=== PATIENT | female | born 1960 | race African-American/Black ===

== ENCOUNTER 2017-09-21 16:30 | Inpatient (IN) | payer OTHER ==
[~2017-09-21] VITALS: Ht 152.4 cm; Wt 108.1 kg
[2017-09-21] MEDS ORDERED: DIOVAN HCT1 TAB PO (17:32)
[2017-09-21] MEDS ORDERED: LASIX20 MG PO (17:32)
[2017-09-21 17:54] LABS: BASOPHIL % 0.2 % (0-2); PLATELET COUNT 325 x10^3mcL (130-400)
[2017-09-21 17:56] LABS: RED CELL DISTRIBUTION WIDTH 16.1 % (11.5-14.5)
[2017-09-21 18:03] LABS: CALCIUM 8.8 mg/dL (8.5-10.1); CARBON DIOXIDE 26.9 mmol/L (21-32); CREATININE SERUM 1.1 mg/dL (0.6-1.0); POTASSIUM SERUM 3.7 mmol/L (3.5-5.1)
[2017-09-21 18:08] LABS: ALBUMIN 2.7 g/dL (3.4-5.0); BILIRUBIN TOTAL 0.4 mg/dL (0.20-1.00); TOTAL PROTEIN, SERUM 7.7 g/dL (6.4-8.2)
[2017-09-21 19:07] LABS: CHOLESTEROL/HDL RATIO 3.3; MAGNESIUM 2.3 mg/dL (1.8-2.4); PHOSPHOROUS 3.4 mg/dL (2.5-4.9); T3 TOTAL 0.79 ng/mL
[2017-09-21 19:12] VITALS: BP 150/79
[2017-09-21 19:14] VITALS: Ht 152.4 cm; Wt 108.1 kg
[2017-09-21 19:32] LABS: FREE T4 1.27 ng/dL (0.76-1.46); FREE THYROXINE INDEX 3.4 ug/dL (1.4-4.5); T4(THYROXINE) 8.9 ug/dL (4.7-13.3)
[2017-09-21 21:38] VITALS: BP 137/74
[2017-09-22 00:57] LABS: microscopic required? NO
[2017-09-22 01:15] LABS: UA SPECIFIC GRAVITY 1.015 (1.005-1.035); urine erythrocyte NEGATIVE (NEGATIVE)
[2017-09-22 01:29] LABS: AMPHETAMINE QUAL UR NONE DETECTED (NEG <=1000)
[2017-09-22 04:53] VITALS: BP 111/68
[2017-09-22 07:00] LABS: BASOPHIL % 0.5 % (0-2); PLATELET COUNT 307 x10^3mcL (130-400)
[2017-09-22 07:01] LABS: RED CELL DISTRIBUTION WIDTH 16.1 % (11.5-14.5)
[2017-09-22 07:30] LABS: CALCIUM 8.5 mg/dL (8.5-10.1); CARBON DIOXIDE 27.3 mmol/L (21-32); CHLORIDE SERUM 102 mmol/L (98-107); GFR1 > 60 mL/min; GLUCOSE SERUM 99 mg/dL (74-106); POTASSIUM SERUM 3.6 mmol/L (3.5-5.1); SODIUM SERUM 141 mmol/L (136-145)
[2017-09-22 11:25] VITALS: BP 106/62
[2017-09-22 14:28] VITALS: BP 106/72
[2017-09-22 17:34] VITALS: BP 116/69
[2017-09-22 21:28] VITALS: BP 124/71
[2017-09-23 04:42] VITALS: BP 118/70
[2017-09-23 07:48] LABS: BASOPHIL % 0.6 % (0-2); PLATELET COUNT 314 x10^3mcL (130-400); RED CELL DISTRIBUTION WIDTH 15.8 % (11.5-14.5)
[2017-09-23 08:00] LABS: CALCIUM 8.3 mg/dL (8.5-10.1); CARBON DIOXIDE 28.6 mmol/L (21-32); CHLORIDE SERUM 102 mmol/L (98-107); GFR1 > 60 mL/min; GLUCOSE SERUM 103 mg/dL (74-106); POTASSIUM SERUM 3.5 mmol/L (3.5-5.1); SODIUM SERUM 140 mmol/L (136-145)
[2017-09-23 09:00] VITALS: BP 132/71
[2017-09-23] MEDS ORDERED: LASIX20 MG PO ×2 (10:34→13:09)
[2017-09-23] MEDS ORDERED: CLEOCIN HCL300 MG PO (10:36)
[2017-09-23] MEDS ORDERED: LAC PO ×2 (10:36→13:09)
[2017-09-23 11:43] VITALS: BP 132/71
[2017-09-23 13:05] VITALS: BP 118/70
[2017-09-23] MEDS ORDERED: NORCO1 TA2 PO (13:09)
[2017-09-23] MEDS ORDERED: CLINDAMYCIN HC300 MG PO (13:09)
== END 2017-09-23 16:10 | disposition home or self-care (01) | DRG 602 ==
LOC: ED 16:30 → MU 17:28 → DU 17:28 → MU 09-23 08:50
PROVIDERS: Emergency Medicine; Family Medicine
DX: L03.116 Cellulitis of left lower limb (principal); E43 Unspecified severe protein-calorie malnutrition; Z68.42 Body mass index [BMI] 45.0-49.9, adult; I89.0 Lymphedema, not elsewhere classified; E78.5 Hyperlipidemia, unspecified; D64.9 Anemia, unspecified; I10 Essential (primary) hypertension; Z83.3 Family history of diabetes mellitus
CPT/HCPCS: 83880; 84439; J0295; J1644; J1940; J3490; J7030; Q0092

== ENCOUNTER → 2019-06-07 | Outpatient (CLI) | payer OTHER ==
[~2019-06-07] MED LIST: CLEOCIN HCL300 MG PO; CLINDAMYCIN HC300 MG PO; DIOVAN HCT1 TAB PO; LAC PO; LASIX20 MG PO; NORCO1 TA2 PO
== END | disposition home or self-care (01) ==
LOC: US 05-31 17:30
PROC: BW4GZZZ Ultrasonography of Pelvic Region (ICD-10-PCS; principal; 2019-06-07)
DX: N95.0 Postmenopausal bleeding (principal)

== ENCOUNTER → 2019-07-30 | Outpatient (CLI) | payer OTHER | END | disposition home or self-care (01) | LOC: LB 10:06 | DX: N95.1 Menopausal and female climacteric states (principal) | CPT/HCPCS: 84402; 84403 ==